=== PATIENT | female | born 1965 | race Caucasian/White ===

== ENCOUNTER 2020-10-01 19:03 | Emergency (ER) | payer MEDICARE, OTHER ==
[~2020-10-01 19:03] MED LIST: ALDACTONE50 MG PO; BRILINTA 90 MG90 MG PO; BUDESONIDE EC3 MG PO; BUSPAR 5MG TABLE5 MG PO; CELEBREX200 MG PO; FENOFIBRATE160 MG PO; FISH OIL 1,0001 EAC4 PO; FLEXERIL 10 MG10 MG PO; GLUCOPHAGE 500500 MG GT; HUMULIN R100 UNIT/1 SQ; IBUPROFEN600 MG PO; ISORDIL TAB 3030 MG PO; KEFLEX CAP 500500 MG PO; LANTUS100 UNIT/1 SQ; LEVAQUIN750 MG PO; LEVOTHYROXINE300 MCG PO; LIPITOR TAB 2020 MG PO; LORTAB 7.5-3251 EACH PO; METOPROLOL TART25 MG PO; NITROSTAT0.4 MG SL; NORCO 5-325 TA1 EACH PO; NOVOLOG FL100 UNIT/1 SQ; PAXIL20 MG PO; PREDNISONE 20 M20 MG PO; PRILOSEC OTC20 MG PO; ULTRAM50 MG PO; VICTOZA 3-0.6 MG/0.1 SQ; XARELTO20 MG PO; ZETIA10 MG PO; ZOFRAN ODT 4 MG4 MG SL
[2020-10-01] MEDS ORDERED: Voltaren gel 1% TOP (23:06)
== END 2020-10-01 23:10 | disposition home or self-care (01) ==
LOC: ER1 19:03
DX: M79.604 Pain in right leg (principal); E11.9 Type 2 diabetes mellitus without complications; I10 Essential (primary) hypertension; E78.5 Hyperlipidemia, unspecified; Z86.718 Personal history of other venous thrombosis and embolism; Z95.1 Presence of aortocoronary bypass graft
CPT/HCPCS: 85379; 85610; 85730; 99283

== ENCOUNTER 2020-12-25 10:45 | Emergency (ER) | payer MEDICARE, OTHER ==
[~2020-12-25 10:45] MED LIST changes: +Voltaren gel 1% TOP
== END 2020-12-25 14:45 | disposition home or self-care (01) ==
LOC: ER1 10:45
DX: U07.1 COVID-19 (principal); E11.9 Type 2 diabetes mellitus without complications; I10 Essential (primary) hypertension; E07.9 Disorder of thyroid, unspecified; Z86.73 Personal history of transient ischemic attack (TIA), and cerebral infarction without residual deficits; Z95.1 Presence of aortocoronary bypass graft
CPT/HCPCS: 99283; U0002

== ENCOUNTER 2021-05-31 10:51 | Emergency (ER) | payer MEDICARE, OTHER ==
[2021-05-31] MEDS ORDERED: CYCLOBENZAPRINE10 MG PO (11:58)
== END 2021-05-31 11:29 | disposition home or self-care (01) ==
LOC: ER1 10:51
DX: S46.912A Strain of unspecified muscle, fascia and tendon at shoulder and upper arm level, left arm, initial encounter (principal); E11.9 Type 2 diabetes mellitus without complications; Z86.711 Personal history of pulmonary embolism; Z86.718 Personal history of other venous thrombosis and embolism; Z95.1 Presence of aortocoronary bypass graft; Z79.01 Long term (current) use of anticoagulants; X58.XXXA Exposure to other specified factors, initial encounter
CPT/HCPCS: 73030; 96372; 99283; J1885

== ENCOUNTER → 2021-06-10 | Outpatient (CLI) | payer MEDICARE, OTHER ==
[~2021-06-10] MED LIST changes: +CYCLOBENZAPRINE10 MG PO
== END ==
LOC: NM 09:00
DX: I25.10 Atherosclerotic heart disease of native coronary artery without angina pectoris (principal); I10 Essential (primary) hypertension; R10.11 Right upper quadrant pain; R93.2 Abnormal findings on diagnostic imaging of liver and biliary tract; R94.31 Abnormal electrocardiogram [ECG] [EKG]
CPT/HCPCS: 78227; 93005; A9537; J2805

== ENCOUNTER → 2021-06-12 | Outpatient (CLI) | payer MEDICARE, OTHER | LOC: EMI 14:36 | DX: M25.512 Pain in left shoulder (principal); M75.102 Unspecified rotator cuff tear or rupture of left shoulder, not specified as traumatic | CPT/HCPCS: 73221 ==

== ENCOUNTER → 2021-08-31 | Outpatient (CLI) | payer MEDICARE, OTHER ==
[~2021-08-31] MED LIST changes: +ATORVASTATIN CA80 MG PO; +CYANOCOBALAMIN SC; +DOXEPIN HCL10 MG PO; +DULOXETINE HCL60 MG PO; +HYDROCHLOROTHIA25 MG PO; +LISINOPRIL10 MG PO; +LO-DOSE ASPIRIN81 MG PO; +MECLIZINE HCL25 MG PO; +METFORMIN HCL500 MG PO; +METOPROLOL SUCC50 MG PO; -METOPROLOL TART25 MG PO; +NOVOLOG FL100 UNIT/1 INJ; +OMEPRAZOLE20 MG PO; +OXYBUTYNIN CHLOR5 MG PO; +OZEMPIC1 MG/0.71 SQ; +PROAIR HFA8.5 GM INH; +SERTRALINE HCL100 MG PO; +SYMBICORT 80-10.2 GM INH; +TRESIBA FL100 UNIT/1 SQ; +VASCEPA1 GM PO; +VITAMIN D325 MCG PO; +ZINC50 MG PO; +ZOFRAN ODT 4 MG4 MG PO
[2021-08-31 10:42] LABS: HEMOGLOBIN 12.7 gm/dl (12.3-15.3); RED BLOOD COUNT 4.19 M/UL (4.00-5.10); WHITE BLOOD COUNT 11.1 K/UL (4.5-11.0)
[2021-08-31 11:01] LABS: BUN/CREATININE RATIO 14 (0-10)
== END ==
LOC: OPSV2 08-28 08:00
PROVIDERS: Obstetrics & Gynecology
DX: Z01.818 Encounter for other preprocedural examination (principal); N93.9 Abnormal uterine and vaginal bleeding, unspecified; R94.31 Abnormal electrocardiogram [ECG] [EKG]; I45.2 Bifascicular block
CPT/HCPCS: 36415; 80048; 81001; 85025; 93005

== ENCOUNTER → 2021-09-14 | Outpatient (CLI) | payer MEDICARE, OTHER | LOC: RAD 14:59 | DX: R22.41 Localized swelling, mass and lump, right lower limb (principal); M79.89 Other specified soft tissue disorders | CPT/HCPCS: 73610; 73630 ==

== ENCOUNTER → 2021-10-26 | Outpatient (CLI) | payer MEDICARE, OTHER | LOC: KOH-I 10-19 11:15 | DX: S82.54XD Nondisplaced fracture of medial malleolus of right tibia, subsequent encounter for closed fracture with routine healing (principal); M25.774 Osteophyte, right foot; M25.571 Pain in right ankle and joints of right foot; M77.31 Calcaneal spur, right foot; W19.XXXD Unspecified fall, subsequent encounter | CPT/HCPCS: 73721 ==

== ENCOUNTER 2021-11-27 07:01 | Inpatient (IN) | payer MEDICARE, OTHER ==
[~2021-11-27] VITALS: Ht 162.6 cm; Wt 122.5 kg
[2021-11-27 07:47] LABS: HEMOGLOBIN 12.7 gm/dl (12.3-15.3); RED BLOOD COUNT 4.28 M/UL (4.00-5.10); WHITE BLOOD COUNT 11.5 K/UL (4.5-11.0)
[2021-11-27 08:03] LABS: BUN/CREATININE RATIO 13 (0-10)
[2021-11-28 03:03] LABS: HEMOGLOBIN 10.8 gm/dl (12.3-15.3)
[2021-11-28 03:18] LABS: BUN/CREATININE RATIO 11 (0-10)
[2021-11-28 03:43] LABS: RED BLOOD COUNT 3.66 M/UL (4.00-5.10)
[2021-11-29 05:23] LABS: HEMOGLOBIN 10.4 gm/dl (12.3-15.3); RED BLOOD COUNT 3.54 M/UL (4.00-5.10); WHITE BLOOD COUNT 9.8 K/UL (4.5-11.0)
== END 2021-11-29 12:20 | disposition home or self-care (01) | DRG 390 ==
LOC: ER1 07:01 → CDU 11:28 → M/S 13:31
PROVIDERS: Physician Assistant Medical; ADMIT Internal Medicine
DX: K56.609 Unspecified intestinal obstruction, unspecified as to partial versus complete obstruction (principal); E53.8 Deficiency of other specified B group vitamins; I25.10 Atherosclerotic heart disease of native coronary artery without angina pectoris; M06.9 Rheumatoid arthritis, unspecified; M79.7 Fibromyalgia; M32.9 Systemic lupus erythematosus, unspecified; E78.5 Hyperlipidemia, unspecified; I10 Essential (primary) hypertension; E03.9 Hypothyroidism, unspecified; E11.9 Type 2 diabetes mellitus without complications; Z95.1 Presence of aortocoronary bypass graft; Z86.718 Personal history of other venous thrombosis and embolism; Z90.49 Acquired absence of other specified parts of digestive tract; Z82.49 Family history of ischemic heart disease and other diseases of the circulatory system; Z83.3 Family history of diabetes mellitus
CPT/HCPCS: 71045; 80048; 80053; 81001; 82550; 82553; 82962; 83605; 83690; 83735; 84484; 84703; 85025; 85027; 87040; 93005; 94760; 96374; 96375; 96376; 99285; C9113; J2270; J2405; J2543; Q9967